=== PATIENT | female | born 1950 | race Two or more races ===

== ENCOUNTER 2017-06-10 07:25 | Outpatient (CLI) | payer OTHER ==
[~2017-06-10 07:25] MED LIST: FEMARA2.5 MG PO; ULTRAM50 MG PO
== END 2017-06-10 07:35 | disposition home or self-care (01) ==
LOC: LAB 07:25
DX: E72.8 Other specified disorders of amino-acid metabolism (principal); E55.0 Rickets, active; C50.412 Malignant neoplasm of upper-outer quadrant of left female breast

== ENCOUNTER 2017-07-06 08:04 | Outpatient (CLI) | payer OTHER | END 2017-07-06 09:00 | disposition home or self-care (01) | LOC: NUCLEAR 08:04 | DX: C50.412 Malignant neoplasm of upper-outer quadrant of left female breast (principal); Z17.0 Estrogen receptor positive status [ER+] | CPT/HCPCS: 78815; A9552 ==

== ENCOUNTER → 2017-07-09 08:04 | Outpatient (CLI) | payer OTHER | END | disposition home or self-care (01) | LOC: LAB 08:04 | DX: C50.412 Malignant neoplasm of upper-outer quadrant of left female breast (principal); Z17.0 Estrogen receptor positive status [ER+] ==

== ENCOUNTER 2017-09-28 06:59 | Outpatient (CLI) | payer OTHER | END 2017-09-28 07:47 | disposition home or self-care (01) | LOC: LAB 06:59 | DX: E78.2 Mixed hyperlipidemia (principal); R51 Headache; R42 Dizziness and giddiness; D64.89 Other specified anemias; R74.0 Nonspecific elevation of levels of transaminase and lactic acid dehydrogenase [LDH]; C50.412 Malignant neoplasm of upper-outer quadrant of left female breast; E55.0 Rickets, active; M81.0 Age-related osteoporosis without current pathological fracture; Z12.11 Encounter for screening for malignant neoplasm of colon ==

== ENCOUNTER 2017-09-29 14:06 | Outpatient (CLI) | payer OTHER | END 2017-09-29 14:07 | disposition home or self-care (01) | LOC: LAB 14:06 | DX: E78.2 Mixed hyperlipidemia (principal); R51 Headache; R42 Dizziness and giddiness; Z12.11 Encounter for screening for malignant neoplasm of colon ==

== ENCOUNTER 2018-08-20 08:05 | Outpatient (CLI) | payer OTHER | END 2018-08-20 08:10 | disposition home or self-care (01) | LOC: LAB 08:05 | DX: D64.89 Other specified anemias (principal); E78.2 Mixed hyperlipidemia; R74.0 Nonspecific elevation of levels of transaminase and lactic acid dehydrogenase [LDH]; C50.412 Malignant neoplasm of upper-outer quadrant of left female breast; Z17.0 Estrogen receptor positive status [ER+] ==

== ENCOUNTER 2018-11-09 07:36 | Outpatient (CLI) | payer OTHER | END 2018-11-09 07:44 | disposition home or self-care (01) | LOC: LAB 07:36 | DX: C50.412 Malignant neoplasm of upper-outer quadrant of left female breast (principal); E78.00 Pure hypercholesterolemia, unspecified ==

== ENCOUNTER → 2018-12-21 | Outpatient (CLI) | payer OTHER | END | disposition home or self-care (01) | LOC: NUCLEAR 07:00 | DX: C50.412 Malignant neoplasm of upper-outer quadrant of left female breast (principal) | CPT/HCPCS: 78815; A9552 ==

== ENCOUNTER → 2019-04-08 07:33 | Outpatient (CLI) | payer OTHER | END | disposition home or self-care (01) | LOC: LAB 07:33 | DX: D64.89 Other specified anemias (principal); R74.0 Nonspecific elevation of levels of transaminase and lactic acid dehydrogenase [LDH]; E78.00 Pure hypercholesterolemia, unspecified; C50.412 Malignant neoplasm of upper-outer quadrant of left female breast; Z17.0 Estrogen receptor positive status [ER+] ==

== ENCOUNTER 2019-05-01 07:37 | Outpatient (CLI) | payer OTHER | END 2019-05-01 08:30 | disposition home or self-care (01) | LOC: NUCLEAR 07:37 | DX: M50.80 Other cervical disc disorders, unspecified cervical region (principal); M79.7 Fibromyalgia; M60.89 Other myositis, multiple sites; M17.10 Unilateral primary osteoarthritis, unspecified knee; M51.36 Other intervertebral disc degeneration, lumbar region; M70.62 Trochanteric bursitis, left hip; M70.61 Trochanteric bursitis, right hip; M06.89 Other specified rheumatoid arthritis, multiple sites; M35.09 Sjogren syndrome with other organ involvement; M30.0 Polyarteritis nodosa; C79.51 Secondary malignant neoplasm of bone; Z85.3 Personal history of malignant neoplasm of breast; C50.412 Malignant neoplasm of upper-outer quadrant of left female breast; M81.0 Age-related osteoporosis without current pathological fracture; Z17.0 Estrogen receptor positive status [ER+] | CPT/HCPCS: 77080; 78306; A9503 ==

== ENCOUNTER 2019-09-29 07:20 | Outpatient (CLI) | payer OTHER | END 2019-09-29 15:00 | disposition home or self-care (01) | LOC: LAB 07:20 | PROVIDERS: ATTEND Internal Medicine Hematology & Oncology | DX: D64.89 Other specified anemias (principal); R74.0 Nonspecific elevation of levels of transaminase and lactic acid dehydrogenase [LDH]; E78.00 Pure hypercholesterolemia, unspecified; C50.412 Malignant neoplasm of upper-outer quadrant of left female breast; M85.88 Other specified disorders of bone density and structure, other site ==

== ENCOUNTER → 2019-10-04 07:21 | Outpatient (CLI) | payer OTHER | END | disposition home or self-care (01) | LOC: LAB 07:21 | PROVIDERS: ATTEND General Practice | DX: R10.84 Generalized abdominal pain (principal); R53.81 Other malaise ==

== ENCOUNTER 2019-10-04 07:28 | Outpatient (CLI) | payer OTHER | END 2019-10-04 07:36 | disposition home or self-care (01) | LOC: SONOGRAMA 07:28 → MAMO-SONO 08:15 | PROVIDERS: ATTEND General Practice | DX: R10.814 Left lower quadrant abdominal tenderness (principal) ==

== ENCOUNTER 2020-04-12 08:15 | Outpatient (CLI) | payer OTHER | END 2020-04-12 08:19 | disposition home or self-care (01) | LOC: LAB 08:15 | PROVIDERS: ATTEND Internal Medicine Hematology & Oncology | DX: D64.89 Other specified anemias (principal); R74.01 Elevation of levels of liver transaminase levels; C50.412 Malignant neoplasm of upper-outer quadrant of left female breast; E55.9 Vitamin D deficiency, unspecified ==

== ENCOUNTER 2020-05-20 08:23 | Outpatient (CLI) | payer OTHER | END 2020-05-20 08:26 | disposition home or self-care (01) | LOC: NUCLEAR 08:23 | PROVIDERS: ATTEND Internal Medicine Hematology & Oncology | DX: E04.1 Nontoxic single thyroid nodule (principal); R91.8 Other nonspecific abnormal finding of lung field; D05.92 Unspecified type of carcinoma in situ of left breast | CPT/HCPCS: 78815; A9552 ==

== ENCOUNTER 2020-09-26 07:33 | Outpatient (CLI) | payer OTHER | END 2020-09-26 07:34 | disposition home or self-care (01) | LOC: LAB 07:33 | PROVIDERS: ATTEND Internal Medicine Hematology & Oncology | DX: D64.89 Other specified anemias (principal); R74.8 Abnormal levels of other serum enzymes; C50.412 Malignant neoplasm of upper-outer quadrant of left female breast ==